=== PATIENT | male | born 1960 | race Caucasian/White ===

== ENCOUNTER 2020-12-13 13:56 | Outpatient (CLI) | payer OTHER ==
[2020-12-13 15:37] LABS: Hemoglobin 16.1 g/dL (13.5-17.5); Mean Corpuscular HGB CONC 35.2 g/dL (32.0-36.0); Mean Corpuscular Hemoglobin 32.2 pg (27.0-33.0); Mean Corpuscular Volume 91.4 fl (81.2-95.1); Platelet Count 230 10x3/uL (150-450); RBC Distribution Width 12.5 % (11.5-14.5); White Blood Cell (WBC) Count 7.1 10x3/uL (3.5-10.5)
[2020-12-13 16:08] LABS: Anion Gap 16 mmol/L (10-20); BUN (Urea Nitrogen) 14 mg/dL (8.4-25.7); Calc. Creatinine Clearance 0 mL/min (70-130); Calcium 9.2 mg/dL (7.8-10.44); Carbon Dioxide 22 mmol/L (23-31); Chloride 107 mmol/L (98-107); Glucose 116 mg/dL (80-115); Potassium 4.5 mmol/L (3.5-5.1); Sodium 140 mmol/L (136-145)
[2020-12-14 02:13] LABS: SARS-CoV-2 PCR by NAA Not Detected (NotDetected)
== END 2020-12-13 13:57 | disposition home or self-care (01) ==
LOC: CSHLAB 13:56
PROVIDERS: ATTEND Surgery
DX: Z01.818 Encounter for other preprocedural examination (principal); Z20.822 Contact with and (suspected) exposure to COVID-19; K42.9 Umbilical hernia without obstruction or gangrene; D17.5 Benign lipomatous neoplasm of intra-abdominal organs
CPT/HCPCS: 80048; 85027; 87635; 93005; 93010; U0003; U0005

== ENCOUNTER 2020-12-16 09:40 | Day surgery (SDC) | payer OTHER ==
[2020-12-16] MEDS ORDERED: Lidocaine 1% MPF 2 ML VIAL ONE (09:46)
[2020-12-16 10:05] VITALS: BMI 30.7
[2020-12-16] MEDS ORDERED: EPINEPHrine 1 MG/ML AMP ONE (11:05)
[2020-12-16] MEDS ORDERED: Bupivacaine PF 0.5% 30 ML VIAL ONE (11:06)
[2020-12-16] MEDS ORDERED: Midazolam HCl 2 mg/2 ml Vial ONE (11:25)
[2020-12-16] MEDS ORDERED: Fentanyl 100 MCG/2 ML VIAL ONE (11:25)
[2020-12-16] MEDS ORDERED: Ketorolac Tromethamine 15 MG/ML VIAL ONE (11:25)
[2020-12-16] MEDS ORDERED: PROPOFOL 20 ML ONE (11:25)
[2020-12-16] MEDS ORDERED: Ondansetron PF 4 MG/2 ML Vial ONE (11:36)
[2020-12-16] MEDS ORDERED: Lidocaine 1% PF 5 ML VIAL ONE (11:36)
[2020-12-16] MEDS ORDERED: Dexamethasone 4 mg/ml Vial ONE (11:36)
[2020-12-16] MEDS ORDERED: Glycopyrrolate 0.2 MG/ML 5 ML SYRINGE ONE (11:36)
[2020-12-16] MEDS ORDERED: ePHEDrine 50 MG/ML VIAL ONE (11:40)
[2020-12-16] MEDS ORDERED: HYDROcodone/Acetaminophen 5/325 mg Tablet PO PRN (13:09)
== END 2020-12-16 13:40 | disposition home or self-care (01) ==
LOC: CSHSDC 09:40
PROVIDERS: ATTEND Surgery
PROC: 0WQF0ZZ Repair Abdominal Wall, Open Approach (ICD-10-PCS; principal; 2020-12-16)
PROC: 0JB80ZZ Excision of Abdomen Subcutaneous Tissue and Fascia, Open Approach (ICD-10-PCS; principal; 2020-12-16)
DX: K42.9 Umbilical hernia without obstruction or gangrene (principal); D17.1 Benign lipomatous neoplasm of skin and subcutaneous tissue of trunk; Z79.899 Other long term (current) drug therapy; I10 Essential (primary) hypertension
CPT/HCPCS: 88304; J0171; J0690; J1100; J1885; J2250; J2405; J2704; J3010; J3490; S0020

== ENCOUNTER 2021-06-16 00:05 | Observation (INO) | payer OTHER ==
[2021-06-16] MEDS ORDERED: Senokot S 8.6-50 MG TAB PO PRN (00:31)
[2021-06-16] MEDS ORDERED: HYDROcodone/Acetaminophen 5/325 mg Tablet PO PRN (00:31)
[2021-06-16] MEDS ORDERED: Zolpidem Tartrate 5 MG TAB PO PRN (00:31)
[2021-06-16] MEDS ORDERED: Ondansetron PF 4 MG/2 ML Vial IVP PRN (00:31)
[2021-06-16] MEDS ORDERED: Calcium Carbonate 500 MG ChewTAB PO PRN (00:31)
[2021-06-16] MEDS ORDERED: Nitroglycerin 0.4 MG TAB (25 Tab Bottle) SL PRN (00:34)
[2021-06-16] MEDS ORDERED: hydrALAZINE 20 MG/ML VIAL SLOW IVP PRN (00:45)
[2021-06-16] MEDS: Acetaminophen 325 MG TAB PO PRN ×2 (00:56→05:51)
[2021-06-16 01:16] VITALS: BMI 32.3
[2021-06-16] MEDS ORDERED: FLU VACC QS2021-22(6MOS UP)/PF 60 MCG/0.5 ML SYRINGE IM ONE (01:30)
[2021-06-16 06:30] LABS: Cardiac Risk 6.1 (Less than 4.5)
[2021-06-16] MEDS ORDERED: Carvedilol 6.25 MG TAB PO SCH (08:00)
[2021-06-16] MEDS ORDERED: Valsartan 80 MG TAB PO SCH (09:00)
[2021-06-16] MEDS ORDERED: Enoxaparin Sodium 40 MG/0.4 ML SYRINGE SC SCH (09:00)
[2021-06-16] MEDS ORDERED: Aspirin 81 mg Enteric Coated Tablet PO SCH (09:00)
[2021-06-16] MEDS ORDERED: Hydrochlorothiazide 25 MG TAB PO SCH (09:00)
[2021-06-16 09:01] LABS: SARS-CoV-2 NAA Rapid Test Not Detected (NotDetected)
[2021-06-16 14:21] LABS: Hemoglobin A1c 4.8 % (4.0-6.0)
[2021-06-16 16:18] VITALS: BP 121/67; TEMP 98.3
[2021-06-16] MEDS ORDERED: Atorvastatin Calcium 10 MG TAB PO SCH (21:00)
== END 2021-06-16 15:45 | disposition home or self-care (01) ==
LOC: CSHTELE 00:05
PROVIDERS: ADMIT Family Medicine; ATTEND Internal Medicine
DX: R07.9 Chest pain, unspecified (principal); I12.9 Hypertensive chronic kidney disease with stage 1 through stage 4 chronic kidney disease, or unspecified chronic kidney disease; N18.2 Chronic kidney disease, stage 2 (mild); E78.5 Hyperlipidemia, unspecified; Z79.899 Other long term (current) drug therapy; Z72.0 Tobacco use; Z20.822 Contact with and (suspected) exposure to COVID-19
CPT/HCPCS: 36415; 36416; 80061; 83036; 84484; G0378; U0002

== ENCOUNTER 2021-07-12 13:30 | Observation (INO) | payer OTHER, SELFPAY ==
[2021-07-12 14:26] LABS: #Monocytes 0.4 10x3/uL (0.0-1.1); #Neutrophils 5.9 10x3/uL (1.5-8.4); %Basophils 0.5 % (0.0-2.0); %Eosinophils 0.3 % (0.0-6.0); %Lymphocytes 19.3 % (18.0-47.0); %Monocytes 5.2 % (0.0-10.0); %Neutrophils 74.4 % (40.0-75.0); Hemoglobin 16.6 g/dL (13.5-17.5); Mean Corpuscular HGB CONC 35.4 g/dL (32.0-36.0); Mean Corpuscular Hemoglobin 32.1 pg (27.0-33.0); Mean Corpuscular Volume 90.7 fl (81.2-95.1); Mean Platelet Volume 9.4 fl (7.4-10.4); Platelet Count 213 10x3/uL (150-450); RBC Distribution Width 11.9 % (11.5-14.5); Red Blood Cell (RBC) Count 5.17 10x6/uL (4.32-5.72); White Blood Cell (WBC) Count 7.9 10x3/uL (3.5-10.5)
[2021-07-12 14:33] LABS: ALT (SGPT) 25 U/L (8-55); AST (SGOT) 28 U/L (5-34); Albumin 4.6 g/dL (3.4-4.8); Alkaline Phosphatase 66 U/L (40-110); Anion Gap 14 mmol/L (10-20); BUN (Urea Nitrogen) 12 mg/dL (8.4-25.7); Calc. Creatinine Clearance 0 mL/min (70-130); Calcium 9.9 mg/dL (7.8-10.44); Carbon Dioxide 25 mmol/L (23-31); Chloride 104 mmol/L (98-107); Globulin 3.2 g/dL (2.4-3.5); Glucose 110 mg/dL (80-115); Potassium 4.5 mmol/L (3.5-5.1); Protein, Total 7.8 g/dL (5.8-8.1); Sodium 138 mmol/L (136-145)
[2021-07-12] MEDS ORDERED: Nitroglycerin 2% Ointment 1 INCH/1 GM Packet ONE (14:36)
[2021-07-12] MEDS ORDERED: Aspirin Chewable 81 MG TAB ONE (14:36)
[2021-07-12] MEDS ORDERED: Acetaminophen 325 MG TAB PO PRN (16:22)
[2021-07-12] MEDS ORDERED: Nitroglycerin 0.4 MG TAB (25 Tab Bottle) SL PRN (16:22)
[2021-07-12] MEDS ORDERED: Ondansetron ODT 4 MG TAB PO PRN (16:22)
[2021-07-12 17:03] LABS: Magnesium 2.1 mg/dL (1.6-2.6)
[2021-07-12 17:10] LABS: Troponin I Less than 0.010 ng/mL (< 0.028)
[2021-07-12 19:56] LABS: Troponin I Less than 0.010 ng/mL (< 0.028)
[2021-07-12] MEDS: Valsartan 80 MG TAB PO SCH (20:45)
[2021-07-12 21:15] VITALS: BMI 31.4
[2021-07-13 04:43] LABS: #Eosinphils 0.1 10x3/uL (0.0-0.5); #Monocytes 0.7 10x3/uL (0.0-1.1); #Neutrophils 3.5 10x3/uL (1.5-8.4); %Basophils 0.6 % (0.0-2.0); %Eosinophils 1.7 % (0.0-6.0); %Lymphocytes 34.9 % (18.0-47.0); %Monocytes 9.8 % (0.0-10.0); %Neutrophils 52.8 % (40.0-75.0); Hemoglobin 15.7 g/dL (13.5-17.5); Mean Corpuscular HGB CONC 34.9 g/dL (32.0-36.0); Mean Corpuscular Hemoglobin 31.8 pg (27.0-33.0); Mean Corpuscular Volume 91.3 fl (81.2-95.1); Mean Platelet Volume 9.5 fl (7.4-10.4); Platelet Count 196 10x3/uL (150-450); RBC Distribution Width 12.1 % (11.5-14.5); Red Blood Cell (RBC) Count 4.93 10x6/uL (4.32-5.72); White Blood Cell (WBC) Count 6.7 10x3/uL (3.5-10.5)
[2021-07-13 05:09] LABS: Anion Gap 11 mmol/L (10-20); BUN (Urea Nitrogen) 15 mg/dL (8.4-25.7); Calc. Creatinine Clearance 98 mL/min (70-130); Calcium 9.2 mg/dL (7.8-10.44); Carbon Dioxide 26 mmol/L (23-31); Cardiac Risk 5.9 (Less than 4.5); Chloride 105 mmol/L (98-107); Cholesterol 231 mg/dl (< 200 Desired); Glucose 97 mg/dL (80-115); HDL Cholesterol 39 mg/dL (>60 Neg Risk); LDL Cholesterol, Calculated 169 mg/dL; Potassium 4.3 mmol/L (3.5-5.1); Sodium 138 mmol/L (136-145); Triglycerides 114 mg/dL (Less than 150)
[2021-07-13] MEDS ORDERED: Spironolactone 25 MG TAB PO SCH (08:00)
[2021-07-13] MEDS: Valsartan 80 MG TAB PO SCH (08:52)
[2021-07-13] MEDS ORDERED: HYDROcodone/Acetaminophen 5/325 mg Tablet PO PRN (08:58)
[2021-07-13] MEDS ORDERED: Calcium Carbonate 500 MG ChewTAB PO PRN (08:58)
[2021-07-13] MEDS ORDERED: GUAIFENESIN SF SOLN 200 MG/10 ML UDCUP PO PRN (08:58)
[2021-07-13] MEDS ORDERED: Ondansetron PF 4 MG/2 ML Vial IVP PRN (08:58)
[2021-07-13] MEDS ORDERED: hydrALAZINE 20 MG/ML VIAL SLOW IVP PRN (08:58)
[2021-07-13] MEDS ORDERED: Cepastat Lozenges 1 LOZ PO PRN (08:58)
[2021-07-13] MEDS ORDERED: Senokot S 8.6-50 MG TAB PO PRN (08:58)
[2021-07-13] MEDS ORDERED: Loperamide HCl 2 MG CAP PO PRN (08:58)
[2021-07-13] MEDS ORDERED: Hydrocerin (Eucerin) Cream 120 gm Jar TOP PRN (08:58)
[2021-07-13] MEDS ORDERED: Loratadine 10 MG TAB PO PRN (08:58)
[2021-07-13] MEDS ORDERED: Artificial Tear Sol 15 ML BOT EA EYE PRN (08:58)
[2021-07-13] MEDS ORDERED: Zolpidem Tartrate 5 MG TAB PO PRN (08:58)
[2021-07-13] MEDS ORDERED: Sodium Chloride 0.65% Nasal 44 ML BOT EA NARE PRN (08:58)
[2021-07-13] MEDS ORDERED: Bisacodyl 5 MG TAB PO PRN (08:58)
[2021-07-13] MEDS ORDERED: Aspirin Chewable 81 MG TAB PO SCH (09:00)
[2021-07-13] MEDS ORDERED: guaiFENesin ER 600 MG TAB PO SCH (09:00)
[2021-07-13 10:43] VITALS: BP 142/77; TEMP 98.5
[2021-07-13] MEDS ORDERED: Atorvastatin Calcium 20 MG TAB PO SCH (21:00)
[2021-07-13 21:31] LABS: SARS-CoV-2 PCR by NAA Not Detected (NotDetected)
== END 2021-07-13 16:27 | disposition home or self-care (01) ==
LOC: CSHERS 13:30 → CSHTELE 13:31
PROVIDERS: ADMIT Family Medicine; ATTEND Internal Medicine
DX: R07.89 Other chest pain (principal); I12.9 Hypertensive chronic kidney disease with stage 1 through stage 4 chronic kidney disease, or unspecified chronic kidney disease; N18.2 Chronic kidney disease, stage 2 (mild); F17.290 Nicotine dependence, other tobacco product, uncomplicated; E78.5 Hyperlipidemia, unspecified; K21.9 Gastro-esophageal reflux disease without esophagitis; E66.9 Obesity, unspecified; Z68.31 Body mass index [BMI] 31.0-31.9, adult; Z20.822 Contact with and (suspected) exposure to COVID-19; Z79.899 Other long term (current) drug therapy; Z79.82 Long term (current) use of aspirin
CPT/HCPCS: 36415; 71045; 80048; 80053; 80061; 83735; 84443; 84484; 85025; 93005; G0378; U0003; U0005

== ENCOUNTER 2021-08-08 11:17 | Outpatient (CLI) | payer OTHER ==
[2021-08-08 22:27] LABS: SARS-CoV-2 PCR by NAA Not Detected (NotDetected)
== END 2021-08-08 11:18 | disposition home or self-care (01) ==
LOC: CSHLAB 11:17
PROVIDERS: ATTEND Internal Medicine Critical Care Medicine
DX: Z20.822 Contact with and (suspected) exposure to COVID-19 (principal)
CPT/HCPCS: U0003; U0005

== ENCOUNTER 2022-12-11 22:17 | Emergency (ER) | payer SELFPAY ==
[2022-12-11 22:47] LABS: #Basophils 0.1 10x3/uL (0.0-0.2); #Eosinphils 0.1 10x3/uL (0.0-0.5); #Monocytes 0.4 10x3/uL (0.0-1.1); #Neutrophils 5.5 10x3/uL (1.5-8.4); %Basophils 0.8 % (0.0-2.0); %Eosinophils 1.3 % (0.0-6.0); %Monocytes 5.5 % (0.0-10.0); %Neutrophils 70.1 % (40.0-75.0); Hemoglobin 15.7 g/dL (13.5-17.5); Mean Corpuscular HGB CONC 36.4 g/dL (32.0-36.0); Mean Corpuscular Hemoglobin 32.8 pg (27.0-33.0); Mean Platelet Volume 9.3 fl (7.4-10.4); Platelet Count 230 10x3/uL (150-450); RBC Distribution Width 12.3 % (11.5-14.5); Red Blood Cell (RBC) Count 4.79 10x6/uL (4.32-5.72); White Blood Cell (WBC) Count 7.8 10x3/uL (3.5-10.5)
[2022-12-11 22:56] LABS: Albumin 4.4 g/dL (3.4-4.8); Anion Gap 15 mmol/L (10-20); BUN (Urea Nitrogen) 14 mg/dL (8.4-25.7); Bilirubin, Total 0.5 mg/dL (0.2-1.2); Calc. Creatinine Clearance 0 mL/min (70-130); Calcium 9.2 mg/dL (7.8-10.44); Carbon Dioxide 23 mmol/L (23-31); Chloride 107 mmol/L (98-107); Estimated GFR 60; Glucose 102 mg/dL (80-115); Potassium 4.7 mmol/L (3.5-5.1); Protein, Total 7.4 g/dL (5.8-8.1); Sodium 140 mmol/L (136-145)
[2022-12-11 22:57] LABS: ALT (SGPT) 16 U/L (8-55); AST (SGOT) 22 U/L (5-34); Alkaline Phosphatase 52 U/L (40-110)
== END 2022-12-12 01:48 | disposition home or self-care (01) ==
LOC: CSHERS 22:17
DX: R07.89 Other chest pain (principal); K57.92 Diverticulitis of intestine, part unspecified, without perforation or abscess without bleeding; I10 Essential (primary) hypertension; F17.290 Nicotine dependence, other tobacco product, uncomplicated
CPT/HCPCS: 36415; 71045; 80053; 84484; 85025; 93005

== ENCOUNTER 2023-09-10 11:04 | Emergency (ER) | payer OTHER, SELFPAY ==
[~2023-09-10 11:04] MED LIST: Iopamidol 300 61% 100 ML VIAL FS ONE
[2023-09-10] MEDS ORDERED: Aspirin Chewable 81 MG TAB ONE (11:52)
[2023-09-10 12:18] LABS: #Eosinphils 0.2 10x3/uL (0.0-0.5); #Monocytes 0.4 10x3/uL (0.0-1.1); #Neutrophils 5.2 10x3/uL (1.5-8.4); %Basophils 0.4 % (0.0-2.0); %Eosinophils 2.7 % (0.0-6.0); %Monocytes 4.7 % (0.0-10.0); %Neutrophils 71.1 % (40.0-75.0); Hematocrit 46.7 % (38.8-50.0); Mean Corpuscular HGB CONC 36.4 g/dL (32.0-36.0); Mean Corpuscular Hemoglobin 33.1 pg (27.0-33.0); Mean Corpuscular Volume 90.9 fl (81.2-95.1); RBC Distribution Width 12.8 % (11.5-14.5); Red Blood Cell (RBC) Count 5.14 10x6/uL (4.32-5.72); White Blood Cell (WBC) Count 7.4 10x3/uL (3.5-10.5)
[2023-09-10 12:19] LABS: Platelet Count 167 10x3/uL (150-450)
[2023-09-10 12:28] LABS: ALT (SGPT) 17 U/L (8-55); AST (SGOT) 27 U/L (5-34); Albumin 4.6 g/dL (3.4-4.8); Alkaline Phosphatase 54 U/L (40-110); Anion Gap 15 mmol/L (10-20); BUN (Urea Nitrogen) 16 mg/dL (8.4-25.7); Bilirubin, Total 0.9 mg/dL (0.2-1.2); Calc. Creatinine Clearance 0 mL/min (70-130); Calcium 10.2 mg/dL (7.8-10.44); Carbon Dioxide 25 mmol/L (23-31); Chloride 105 mmol/L (98-107); Estimated GFR 68; Globulin 3.4 g/dL (2.4-3.5); Glucose 105 mg/dL (80-115); Lipase 21 U/L (8-78); Magnesium 2.2 mg/dL (1.6-2.6); Sodium 139 mmol/L (136-145)
[2023-09-10 12:34] LABS: Troponin I Less than 0.010 ng/mL (< 0.028)
[2023-09-10 13:02] LABS: RBC Morph Comment Within Normal Limits
[2023-09-10 13:03] LABS: Platelet Clumps MODERATE
[2023-09-10 13:04] LABS: Platelet Adequacy Comment Appears Adequate
[2023-09-10 13:05] LABS: Mean Platelet Volume 9.6 fl (7.4-10.4)
[2023-09-10 13:36] LABS: Bilirubin Neg (Negative); Blood, Urine 25 (Negative); Clarity Clear (Clear); Glucose, Urine (Dipstick) Normal (Negative); Ketone, Urine 5 mg/dL (Negative); Leukocyte Negative (Negative); Nitrite Negative (Negative); Protein, Urine (Dipstick) Negative (Neg-Trace); Specific Gravity, Urine 1.015 (1.005-1.030); Urobilinogen Normal mg/dL (Less than 2)
[2023-09-10 13:58] LABS: Anion Gap 11 mmol/L (10-20); BUN (Urea Nitrogen) 15 mg/dL (8.4-25.7); Calc. Creatinine Clearance 0 mL/min (70-130); Calcium 8.6 mg/dL (7.8-10.44); Carbon Dioxide 22 mmol/L (23-31); Chloride 107 mmol/L (98-107); Estimated GFR 89; Glucose 89 mg/dL (80-115); Potassium 4.3 mmol/L (3.5-5.1); Sodium 136 mmol/L (136-145)
[2023-09-10 14:42] LABS: CAUTI Indications for Culture Alt mental st,lethar; RBC/HPF 0-3 HPF (0-3); WBC/HPF None Seen HPF (0-3)
[2023-09-10 14:43] LABS: Bacteria/HPF Rare-Few HPF (None Seen); Squamous Epithelial 0-3 HPF (0-3)
[2023-09-10 14:45] LABS: Urine Culture Reflex No No
== END 2023-09-10 14:52 | disposition home or self-care (01) ==
LOC: CSHERS 11:04
DX: K57.92 Diverticulitis of intestine, part unspecified, without perforation or abscess without bleeding (principal); I10 Essential (primary) hypertension; F17.290 Nicotine dependence, other tobacco product, uncomplicated; Z79.899 Other long term (current) drug therapy
CPT/HCPCS: 36415; 71045; 74177; 80053; 81001; 83690; 83735; 84484; 85025; 93005; Q9967